=== PATIENT | female | born 1970 | race Caucasian/White ===

== ENCOUNTER 2023-09-07 10:46 | Emergency (ER) | payer OTHER, MEDICARE, SELFPAY ==
[2023-09-07 10:54] VITALS: BP 153/139; BP 153/89
--- NOTE | 2023-09-07 11:03 | ED.GENMED ---
History of Present Illness
General
Chief Complaint: Substance Abuse
Time Seen by Provider: 09/07/23 10:48
History of Present Illness
History of Present Illness:
52 yo female w/ hx of opiate dependence/abuse on methadone therapy presents to the Emergency Department via EMS for evaluation of N/V, abd pain, shaking and anxiety developing this AM. Pt admits to daily fentanyl use (last use last PM) and states
'it's laced with all that shit now, the methadone isn't working'. Received her normal 110mg dose of methadone this AM however symptoms had begun prior to this. She is scheduled to be admitted to [facility] in [place] but she is uncertain of the
timeline.
Review of Systems
Review of Systems
Allergies reviewed?: Yes
All Other Systems: ROS reviewed and negative except as documented in HPI and ROS
Phy Exam
Physical Exam
Physical Exam:
Gen: Anxious, tremulous, diaphoretic
HENT: NCAT, PERRLA, no scleral icterus
Cardiac: RRR, no murmur
Lungs: Tachypneic, no rales or crackles
Abdomen: NABS; soft, nontender, no rigidity
MSK: No gross deformity
Neuro: AO x 3
Psych: Anxious and tremulous, cooperative
Course
Orders/Labs/Results
Orders:
Orders
09/07/23 10:58
Lorazepam [Ativan] 1 mg IV NOW STA
09/07/23 10:59
Electrocardiogram (*1) Urgent
Reason for Study: Palpitations
EKG- Treatment ONCE
09/07/23 11:01
Clonidine [Catapres] 0.1 mg PO NOW STA
09/07/23 11:11
Complete Blood Count/With Diff Urgent
Comprehensive Metabolic Panel Urgent
09/07/23 12:09
Clonidine [Catapres] 0.1 mg PO NOW STA
Ondansetron Injectable [Zofran] 4 mg IV NOW STA
09/07/23 13:13
Lorazepam [Ativan] 1 mg IV NOW STA
Abnormal Lab Results
09/07/23
11:11
MPV 11.4 H fL
(7.4-10.4)
Abs Immat Gran (auto) 0.1 H 10^3/uL
(0-0.05)
Absolute Neuts (auto) 7.2 H 10^3/uL
(1.4-6.5)
Immature Gran % 0.6 H %
(0-0.5)
Glucose 100 H mg/dl
(70-99)
Albumin 5.2 H g/dl
(3.5-5.0)
09/07/23 11:11
09/07/23 11:11
Vital Signs
Initial and Last Documented VS:
Initial Vital Signs
Pulse Ox
97
09/07/23 10:52
Last Documented Vital Signs
Temp Pulse Resp BP Pulse Ox
99.4 F 72 16 130/67 96
09/07/23 10:54 09/07/23 13:45 09/07/23 13:45 09/07/23 12:00 09/07/23 13:15
MDM/Problems Addressed
MDM/Problems Addressed:
Presentation most c/w substance withdrawal, most likely alternative drugs as opposed to opiates given that she has been compliant w/ methadone. Improved moderately w/ benzos and clonidine in ED. [facility] consulted however pt not able to be placed for
inpatient rehab at this time due to methadone use, has placement reportedly guaranteed Sunday at [facility]. Will give small Rx for clonidine and hydroxyzine to mitigate withdrawal symptoms
*Critical Care Note
Total Time (30-74mins, 75-104mins- exclusive of procedures): Not Applicable
ED Attending Note
-
Portions of this chart may have been created with voice recognition software.� Occasional wrong word or��sound alike� substitutions may have occurred due to the inherent limitations of voice recognition software.
Discharge Plan
Departure
Patient Disposition: Home (Routine Discharge)
Date of Disposition: 09/07/23
Time of Disposition: 13:38
Patient with high blood pressure during this ER visit?: No
Discharge Problem:
Xylazine withdrawal
Instructions: Drug Misuse and Addiction (DC)
Prescriptions:
New
hydroxyzine HCl 25 mg tablet
25 - 50 mg PO TID Qty: 20 0RF
clonidine HCl 0.2 mg tablet
0.2 mg PO TID PRN (Reason: withdrawal symptoms) Qty: 20 0RF
Referrals:
Jose A Bhagat, DO [Family Provider] -
Activity Restrictions/Additional Instructions:
Continue with plan for admission to [facility] on Sunday
Continue to go to your methadone clinic to avoid further withdrawal symptoms
Your symptoms are likely from withdrawal from alternative substance in your fentanyl, most likely xylazine. The medications I have prescribed you with help reduce these symptoms, however continued fentanyl use will likely lead to the same symptoms
beginning tomorrow morning
Interventions
Interventions:
*Risk Screen - Suicide Last Done: 09/07/23 10:58
*General Assessment Last Done: 09/07/23 14:44
*Neglect/Abuse Screening Last Done: 09/07/23 10:58
ED- Fall Risk Assessment Last Done: 09/07/23 14:44
*ED COVID-19 Vaccine History Last Done: 09/07/23 10:58
*Nursing Disposition Last Done: 09/07/23 14:44
ED-Psychological Assessment Last Done: 09/07/23 14:45
Discharge Date and Time
Discharge Date/Time: 09/07/23 14:45
Print Language: THAI
[2023-09-07] MEDS: CATAPRES 0.1 MG PO ×2 (11:07→12:13)
[2023-09-07] MEDS: ATIVAN 1 MG IV ×2 (11:08→13:17)
[2023-09-07 11:25] LABS: % Basophils 1.2 % (0-2); % Eosinophils 1.4 % (0-6); % Immature Granulocytes 0.6 % (0-0.5); % Monocytes 5.1 % (1.7-9.3); % Neutrophils 69.7 % (42.2-75.2); Absolute Basophils 0.1 10^3/uL (0-0.2); Absolute Eosinophils 0.1 10^3/uL (0-0.7); Absolute Immature Granulocytes 0.1 10^3/uL (0-0.05); Absolute Lymphocytes 2.3 10^3/uL (1.2-3.4); Absolute Monocytes 0.5 10^3/uL (0.1-0.6); Absolute Neutrophils 7.2 10^3/uL (1.4-6.5); Hematocrit 40.7 % (37.0-47.0); Hemoglobin 14.2 g/dL (12.0-16.0); Mean Corp Hgb Conc. 34.9 g/dL (33.0-37.0); Mean Corpuscular Hgb 29.6 pg (27.0-31.0); Mean Corpuscular Volume 84.8 fL (81.0-99.0); Mean Platelet Volume 11.4 fL (7.4-10.4); Nucleated Red Blood Cells % 0 %; Platelet Count 279 10^3/uL (130-400); Red Cell Dist. Width 12.6 % (11.5-14.5); White Blood Cell Count 10.3 10^3/uL (4.8-10.8)
[2023-09-07 11:35] LABS: ALT (SGPT) 18 U/L (0-35); AST (SGOT) 28 U/L (14-36); Albumin 5.2 g/dl (3.5-5.0); Alkaline Phosphatase 93 U/L (38-126); Blood Urea Nitrogen 14 mg/dl (7-17); Calcium 10.2 mg/dl (8.4-10.2); Carbon Dioxide 25 mmol/L (22-30); Chloride 105 mmol/L (98-107); Glucose 100 mg/dl (70-99); Potassium 3.8 mmol/L (3.5-5.1); Sodium 144 mmol/L (135-145); Total Bilirubin 0.7 mg/dl (0.2-1.3); eGFR > 60.00
[2023-09-07 12:00] VITALS: BP 130/67
[2023-09-07] MEDS: ZOFRAN 4 MG IV (12:13)
== END 2023-09-07 14:45 | disposition home or self-care (01) ==
LOC: EMR 10:46
PROVIDERS: Physician Assistant; EMERGENCY PHYSICIAN Emergency Medicine; FAMILY PHYSICIAN Family Medicine
DX: T42.6X1A Poisoning by other antiepileptic and sedative-hypnotic drugs, accidental (unintentional), initial encounter (principal); F13.239 Sedative, hypnotic or anxiolytic dependence with withdrawal, unspecified; R11.2 Nausea with vomiting, unspecified; R10.9 Unspecified abdominal pain; R25.1 Tremor, unspecified; R00.2 Palpitations; F11.20 Opioid dependence, uncomplicated; F41.9 Anxiety disorder, unspecified; Z91.048 Other nonmedicinal substance allergy status
CPT/HCPCS: 99284; 96374; 96376; 96375; 80053; 85025; 93005